=== PATIENT | male | born 1990 | race African-American/Black ===

== ENCOUNTER 2016-09-30 20:07 | Emergency (ER) | payer OTHER ==
[~2016-09-30] VITALS: Ht 165.1 cm; Wt 89.8 kg
[~2016-09-30 20:07] MED LIST: ADVAIR 100-501 EACH INH; ALBUTEROL SULF8.5 GM INH; ALBUTEROL2.5 MG/3 M HHN; AZITHROMYCIN250 MG ORAL; DIPHENHYDRAMINE25 M1 ORAL; FLOVENT2 PUFF1 INH; FLOVENT2 PUFF2 INH; IBUPROFEN600 MG PO; KEFLEX500 MG ORAL; KENALOG 0.1% CR15 GM APPLIC; KENALOG 0.1% CR15 GM TOPIC; LEVAQUIN500 MG ORAL; MEDROL DOSEPAK4 MG ORAL; NKM; PREDNISONE20 M1 PO; PREDNISONE20 MG ORAL; PREDNISONE50 MG ORAL; PROAIR HFA8.5 GM INH; PROMETHAZINE-C118 M1 ORAL; VENTOLIN HFA18 GM INH; ZYRTEC10 MG ORAL
[2016-09-30 20:49] VITALS: BP 120/74
[2016-09-30] MEDS ORDERED: KEFLEX500 MG ORAL (21:04)
[2016-09-30] MEDS ORDERED: IBUPROFEN600 MG ORAL (21:04)
--- NOTE | 2016-09-30 21:07 | Emergency Room Report ---
History of Present Illness General Chief Complaint: Earache Source: Patient Present Illness HPI Patient's 26-year-old male presented after increased left-sided facial rash as well as left sided earache. Patient had increased skin lesions which are nonpainful to left-sided cheek. He reported having increased nasal congestion. Patient stated that he had lesions his face but not painful. Patient had here. He denied any neck stiffness. He reported having some sharp pain to his left ear. He denied hearing loss. He denied any changes in his balance. Allergies: Coded Allergies: No Known Allergies (Unverified , 09/30/16) Patient History Reviewed Nursing Documentation: PMH: Agreed, PSxH: Agreed Nursing Documentation-PMH Past Medical History: No History, Except For Hx Asthma: Yes Review of Systems All Other Systems: negative except mentioned in HPI Physical Exam Vital Signs Date Time Temp Pulse Resp B/P Pulse Ox O2 Delivery O2 Flow Rate FiO2 09/30/16 20:45 98.1 70 16 126/78 96 Room Air Sp02 EP Interpretation: reviewed, normal General Appearance: normal inspection, well appearing, no apparent distress, alert, GCS 15 Head: atraumatic ENT: normal ENT inspection, hearing grossly normal, normal voice Neck: normal inspection, full range of motion, supple, no bony tend Respiratory: normal inspection, lungs clear, normal breath sounds, no respiratory distress, no retraction, no wheezing Cardiovascular #1: regular rate, rhythm, no edema Gastrointestinal: normal inspection, normal bowel sounds, non tender, soft, no guarding, no hernia Genitourinary: no CVA tenderness Musculoskeletal: normal inspection, back normal, normal range of motion Neurologic: normal inspection, alert, responsive, speech normal Psychiatric: normal inspection, judgement/insight normal, mood/affect normal Skin: no rash, other - grouped left cheek lesions centered on hair follicle without erythema Medical Decision Making Diagnostic Impression: Primary Impression: Folliculitis ER Course Patient presented for skin rash. Differential diagnosis included wasn't limited to folliculitis, contact dermatitis, acne, shingles among others. Patient's benign exam and does not appear to require any further imaging or laboratory testing at this time. The patient given ibuprofen for pain.The patient is advised to follow up with primary care doctor in 1-2 days. Patient is advised to return if any worsening condition or if any changes in status that are concerning. Last Vital Signs Date Time Temp Pulse Resp B/P Pulse Ox O2 Delivery O2 Flow Rate FiO2 09/30/16 20:45 98.1 70 16 126/78 96 Room Air Status: improved Disposition: HOME, SELF-CARE Condition: Stable Scripts Ibuprofen* (MOTRIN*) 600 Mg Tablet 600 MG ORAL Q8H Y for For Pain, #30 TAB 0 Refills Prov: Josue Bernal 09/30/16 Cephalexin* (KEFLEX*) 500 Mg Capsule 500 MG ORAL EVERY 6 HOURS, #28 CAP 0 Refills Prov: Josue Bernal 09/30/16 Patient Instructions: Folliculitis Josue Bernal Sep 30, 2016 21:07
[2016-09-30 21:35] VITALS: BP 120/74
== END 2016-09-30 21:35 | disposition home or self-care (01) ==
LOC: EMR 21:07
DX: L73.9 Follicular disorder, unspecified (principal); J45.909 Unspecified asthma, uncomplicated
CPT/HCPCS: 99284

== ENCOUNTER 2018-03-08 02:31 | Emergency (ER) | payer OTHER ==
[~2018-03-08] VITALS: Ht 165.1 cm; Wt 90.7 kg
[~2018-03-08 02:31] MED LIST changes: +IBUPROFEN600 MG ORAL
[2018-03-08 02:40] VITALS: BP 141/97
--- NOTE | 2018-03-08 02:42 | NUR ---
ED Nurse Note: pt came in deu to difficulty breathing started 1 hour ago, stated he has asthma attack and used 2 nebulizer and ventolin puff but didnt work out. pt stated he is running out of puff also. vss. will continue to monitor.
[2018-03-08] MEDS ORDERED: Ipratropium 0.02% Inh Soln 2.5ml UD HHN ONE (03:00)
[2018-03-08] MEDS ORDERED: Albuterol ud Inhalation HHN ONE ×3 (03:00→04:45)
--- NOTE | 2018-03-08 03:20 | NUR ---
ED Nurse Note: respiratory therapist on bedside nebulizing the pt. pt has bilaretal wheezing. nikolai continue to monitor.
[2018-03-08] MEDS ORDERED: DULERA 200 MCG/13 GM IH (03:27)
[2018-03-08] MEDS ORDERED: ALBUTEROL SULF8.5 GM INH (03:27)
[2018-03-08] MEDS ORDERED: PREDNISONE20 MG ORAL (03:27)
--- NOTE | 2018-03-08 03:27 | Emergency Room Report ---
History of Present Illness General Chief Complaint: Dyspnea/Respdistress Source: Patient Present Illness HPI Is a 28-year-old male with a history of asthma. He goes to 1 inhaler a month. He presents with chief complaint of shortness of breath and wheezing. Onset tonight. Woke up short of breath. He's been using his inhaler frequently for last week. No nausea no vomiting. No fever chills. Last steroid use was over a year ago. Denies any URI symptoms. No chest pain. better with albuterol. Worse with exertion. Allergies: Coded Allergies: No Known Allergies (Unverified , 09/30/16) Patient History Past Medical History: see triage record, old chart reviewed, asthma Past Surgical History: none Pertinent Family History: none Social History: Denies: smoking Immunizations: other Reviewed Nursing Documentation: PMH: Agreed; PSxH: Agreed Nursing Documentation-PM Past Medical History: No History, Except For Hx Asthma: Yes Review of Systems Eye: Denies: eye pain, blurred vision ENT: Denies: ear pain, nose congestion, throat swelling Respiratory: Reports: cough, shortness of breath, wheezing Cardiovascular: Denies: chest pain, palpitations Gastrointestinal: Denies: abdominal pain, diarrhea, nausea, vomiting Musculoskeletal: Denies: back pain, joint pain Skin: Denies: rash Neurological: Denies: headache, numbness Endocrine: Denies: increased thirst, increased urine Hematologic/Lymphatic: Denies: easy bruising All Other Systems: negative except mentioned in HPI Physical Exam Vital Signs Date Time Temp Pulse Resp B/P (MAP) Pulse Ox O2 Delivery O2 Flow Rate FiO2 03/08/18 02:35 97.9 99 20 141/97 95 Room Air 03/08/18 03:08 21 vital signs normal Sp02 EP Interpretation: reviewed, normal General Appearance: well appearing, no apparent distress, alert Head: normocephalic, atraumatic Eyes: bilateral eye PERRL, bilateral eye EOMI ENT: hearing grossly normal, normal pharynx Neck: full range of motion, supple, no meningismus Respiratory: chest non-tender, accessory muscle use, wheezing Cardiovascular #1: regular rate, rhythm, no murmur Gastrointestinal: normal bowel sounds, non tender, no mass, no organomegaly, no bruit, non-distended Musculoskeletal: back normal, gait/station normal, normal range of motion Psychiatric: mood/affect normal Skin: warm/dry Medical Decision Making Diagnostic Impression: Primary Impression: Asthma exacerbation Qualified Codes: J45.21 - Mild intermittent asthma with (acute) exacerbation ER Course Patient with asthma exacerbation. Is not well-controlled. We'll put him on steroid inhaler. We'll discharge home. No evidence of ACS, PE, dissection to name a few. Wheezing resolved with treatment. Last Vital Signs Date Time Temp Pulse Resp B/P (MAP) Pulse Ox O2 Delivery O2 Flow Rate FiO2 03/08/18 03:09 88 20 98 Room Air 21 03/08/18 02:40 97.9 141/97 Status: improved Disposition: HOME, SELF-CARE Condition: Stable Scripts Mometasone/Formoterol (DULERA 200 MCG/5 MCG INHALER) 13 Gm Hfa.aer.ad 13 GM IH BID, #1 UNIT Prov: Ricardo Sharp MD 03/08/18 Prednisone* (PREDNISONE*) 20 Mg Tablet 40 MG ORAL DAILY, #8 TAB Prov: Ricardo Sharp MD 03/08/18 Albuterol Sulfate* (ALBUTEROL SULFATE MDI*) 8.5 Gm Hfa.aer.ad 2 PUFF INH Q4H PRN for cough/wheezing, #1 EA 0 Refills Prov: Ricardo Sharp MD 03/08/18 Referrals: [facility],REFERR[facility] (PCP) Additional Instructions: Follow-up with your doctor in 7 days. Return if worse. Ricardo Sharp MD Mar 08, 2018 03:27
[2018-03-08 04:12] VITALS: BP 132/88
--- NOTE | 2018-03-08 04:17 | NUR ---
ED Nurse Note: pt noted to still have wheezing after 2 breathing tx, irwin told pt to wait 10-15 min until the meds kick in. pt sttaed he feeld a lot better now. will continue to monitor.
--- NOTE | 2018-03-08 04:54 | NUR ---
ED Nurse Note: pt noted to be wheezing still. ermd order albuterol hhn, rt on bedside. will continue to monitor.
--- NOTE | 2018-03-08 05:26 | NUR ---
ED Nurse Note: ermd on bedside,pt doing the peak flow meter and reveal 250 result x 3 attempts. ermd order another neb, rt on bedside doing the nebulization. will continue to monitor.
[2018-03-08] MEDS ORDERED: Albuterol/Ipratropium 3ml neb HHN ONE (05:30)
[2018-03-08 06:00] VITALS: BP 115/75
--- NOTE | 2018-03-08 06:03 | NUR ---
ED Nurse Note: ermd on bedside talking with pt with regards to dc plan. discharge instruction and prescription explained and pt able to verbalize understanding. pt stated he feels a lot better than when he came. id band removed, vss. pt left the ed with relative with all belongings.
== END 2018-03-08 06:00 | disposition home or self-care (01) ==
LOC: EMR 02:51
DX: J45.21 Mild intermittent asthma with (acute) exacerbation (principal)
CPT/HCPCS: 94640; 94664; 99284; J7512; J7620

== ENCOUNTER 2019-01-25 02:09 | Emergency (ER) | payer OTHER ==
[~2019-01-25] VITALS: Ht 165.1 cm; Wt 96.6 kg
[~2019-01-25 02:09] MED LIST changes: +DULERA 200 MCG/13 GM IH
[2019-01-25 02:19] VITALS: BP 135/91
--- NOTE | 2019-01-25 02:19 | NUR ---
ED Nurse Note: Patient walked in to ER c/o asthma flare up, SOB since yesterday morning. As per patient, he took his inhaler but doesnt alleviate the symptom. Has hx of asthma. Pt is an active smoker. O2 sat 95% RA. VSS. S/O at bedside.
--- NOTE | 2019-01-25 02:26 | Emergency Room Report ---
History of Present Illness General Chief Complaint: Asthma Source: Patient, Medical Record Present Illness HPI Disclaimer: Please note that this report is being documented using [employer] technology. This can lead to erroneous entry secondary to incorrect interpretation by the dictating instrument. HPI: 28-year-old male with a history of asthma presents for evaluation of shortness of breath. He symptoms began approximately 6 hours ago while the patient was at work. Notes wheezing that was not alleviated by using his albuterol inhaler. No recent exacerbations. He does not use any other medications to control his asthma. Otherwise in his usual state of health and denies any recent nasal congestion, sore throat, cough, abdominal pain, vomiting , chest pain, diarrhea. No known sick contacts. No alleviating or exacerbating factors. PMH: Asthma PSH: Denies Allergies: Denies Social Hx: Regular tobacco use Allergies: Coded Allergies: No Known Allergies (Unverified , 09/30/16) Nursing Documentation-PMH Past Medical History: No History, Except For Hx Asthma: Yes Review of Systems All Other Systems: negative except mentioned in HPI Physical Exam Vital Signs Date Time Temp Pulse Resp B/P (MAP) Pulse Ox O2 Delivery O2 Flow Rate FiO2 01/25/19 02:14 97.5 97 18 135/91 (106) 93 Room Air General: Awake and alert, no acute distress HEENT: NC/AT. EOMI. Cardiovascular: RRR. S1 and S2 normal. No murmur appreciated Resp: Normal work of breathing. No cough. Bilateral inspiratory and expiratory wheezes. No crackles Skin: Intact. No abrasions, laceration or rash over the exposed skin MSK: Normal tone and bulk. Moving all extremities. No obvious deformity. Neuro: Awake and alert. Mentating appropriately. Medical Decision Making Diagnostic Impression: Primary Impression: Asthma exacerbation ER Course 28-year-old male presents for evaluation of shortness of breath. Appears to be an acute asthma exacerbation as the patient has inspiratory next Tory wheezes bilaterally. Will give several breathing treatments and prednisone in the emergency department monitor for improvement. Do not believe he requires emergent imaging or labs at this time. He is well-appearing with stable vital signs on arrival. If improved he may be discharged and if not significantly improved he will require further work-up and reevaluation. Reevaluation Time: 04:21 Last Vital Signs Date Time Temp Pulse Resp B/P (MAP) Pulse Ox O2 Delivery O2 Flow Rate FiO2 01/25/19 02:14 97.5 97 18 135/91 (106) 93 Room Air Reevaluation Impression Patient is received several breathing treatments in the emergency department with improvement in his aeration. He has faint wheezes bilaterally at the bases though overall is improved from his initial presentation. He states he used to be taking Spiriva as well but is no longer has that prescription. We will refill his Spiriva and start him on oral prednisone for a few days. He has plenty of albuterol left at home. Patient will follow-up with his PMD. We discussed reasons to return to the emergency department. He understands and agrees with this treatment plan. Disposition: HOME, SELF-CARE Condition: Improved Scripts Tiotropium [place] (Spiriva) 18 Mcg Cap.w.dev 1 PUFF INH DAILY for 30 Days, #1 EA Prov: Dewayne Hart MD 01/25/19 Prednisone* (PREDNISONE*) 20 Mg Tablet 40 MG ORAL DAILY, #8 TAB Prov: Dewayne Hart MD 01/25/19 Dewayne Hart MD Jan 25, 2019 02:26
[2019-01-25] MEDS: Albuterol/Ipratropium 3ml neb HHN SCH ×3 (02:30→02:56)
--- NOTE | 2019-01-25 02:32 | NUR ---
ED Nurse Note: RT at bedside for breathing tx.
[2019-01-25] MEDS ORDERED: PREDNISONE20 MG ORAL (02:37)
[2019-01-25] MEDS: Albuterol ud Inhalation HHN SCH ×3 (03:17→03:49)
[2019-01-25] MEDS ORDERED: SPIRIVA INHALE1 PUF1 INH (04:20)
[2019-01-25 04:31] VITALS: BP 129/77
--- NOTE | 2019-01-25 04:31 | NUR ---
ED Nurse Note: Pt cleared by ERMDr for discharge. DC instructions was given and explained to pt and verbalized understanding of teachings. Precription is sent electronically to the pharmacy. All medical deviecs such as ID band removed. Pt is AAO x4, ambulatory and left with all personal belongings. Accompanied by s/o.
== END 2019-01-25 04:31 | disposition home or self-care (01) ==
LOC: EMR 02:35
DX: J45.901 Unspecified asthma with (acute) exacerbation (principal)
CPT/HCPCS: 94640; 94664; 99284; J7512; J7620

== ENCOUNTER 2019-02-15 20:16 | Emergency (ER) | payer OTHER ==
[~2019-02-15] VITALS: Ht 165.1 cm; Wt 96.6 kg
[~2019-02-15 20:16] MED LIST changes: +SPIRIVA INHALE1 PUF1 INH
[2019-02-15] MEDS ORDERED: PREDNISONE50 MG ORAL ×2 (21:26→22:55)
[2019-02-15] MEDS ORDERED: SPACE CHAMBER1 EACH MC (21:26)
[2019-02-15] MEDS ORDERED: ALBUTEROL SULF8.5 GM INH ×2 (21:26→22:55)
--- NOTE | 2019-02-15 21:27 | Emergency Room Report ---
History of Present Illness General Chief Complaint: Upper Respiratory Illness Source: Patient Present Illness HPI 28-year-old male past history of asthma, takes a rescue inhaler presents with shortness of breath that started at 12 PM today, alleviating factors albuterol, no aggravating factors, no cough no congestion, patient does endorse some chest tightness, severity is moderate, constant, patient has never been intubated, never been placed in ICU patient presents for evaluation. Allergies: Coded Allergies: No Known Allergies (Unverified , 09/30/16) Patient History Past Medical History: see triage record Reviewed Nursing Documentation: PMH: Agreed; PSxH: Agreed Nursing Documentation-PMH Hx Asthma: Yes Review of Systems All Other Systems: negative except mentioned in HPI Physical Exam Vital Signs Date Time Temp Pulse Resp B/P (MAP) Pulse Ox O2 Delivery O2 Flow Rate FiO2 02/15/19 20:19 98.1 116 24 140/72 (94) 93 Room Air Sp02 EP Interpretation: reviewed, normal General Appearance: well appearing, no apparent distress, alert Head: normocephalic, atraumatic Eyes: bilateral eye PERRL, bilateral eye EOMI ENT: uvula midline, moist mucus membranes Neck: supple, thyroid normal, supple/symm/no masses Respiratory: no respiratory distress, no retraction, no accessory muscle use, wheezing - Moderate wheezing bilaterally Cardiovascular #1: normal peripheral pulses, regular rate, rhythm, no edema, no gallop, no murmur Gastrointestinal: non tender, soft, no guarding, no rebound Musculoskeletal: normal inspection Neurologic: alert, oriented x3 Psychiatric: mood/affect normal Skin: no rash, warm/dry Medical Decision Making Diagnostic Impression: Primary Impression: Asthma exacerbation Qualified Codes: J45.41 - Moderate persistent asthma with (acute) exacerbation ER Course 28-year-old male presents with acute asthma exacerbation, differential diagnosis includes pneumonia, URI, asthma exacerbation Patient in no signs of respiratory distress, patient given prednisone p.o. in the ED, patient given duo nebs x3 Reevaluation at 9:15 PM, patient with significant improvement in breathing, wheezing is now mild Will provide patient with a prednisone burst, counseled patient on how to use his inhaler properly Disposition home with return precautions Last Vital Signs Date Time Temp Pulse Resp B/P (MAP) Pulse Ox O2 Delivery O2 Flow Rate FiO2 02/15/19 20:19 98.1 116 24 140/72 (94 93 Room Air Disposition: HOME, SELF-CARE Condition: Stable Scripts Prednisone* (PREDNISONE*) 50 Mg Tablet 50 MG ORAL DAILY, #4 TAB 0 Refills Prov: Sloan Mccloud MD 02/15/19 Inhaler, Assist Devices (Space Chamber Plus) 1 Each Spacer EACH MC, #1 Prov: Sloan Mccloud MD 02/15/19 Albuterol Sulfate* (ALBUTEROL SULFATE MDI*) 8.5 Gm Hfa.aer.ad 2 PUFF INH Q4H PRN for Shortness of Breath, #1 EA 0 Refills Prov: Sloan Mccloud MD 02/15/19 Referrals: [facility] Patient Instructions: Asthma Attack Prevention, Asthma, Adult, [id number] Additional Instructions: The patient was provided with discharge instructions, notified to follow-up with a primary care doctor and or specialist in the next 24-48 hours, and to return to the ED if they have worsening of their symptoms. Please note that this report is being documented using [employer] technology. This can lead to erroneous entry secondary to incorrect interpretation by the dictating instrument. Sloan Mccloud MD Feb 15, 2019 21:27
[2019-02-15] MEDS: Albuterol ud Inhalation HHN SCH ×5 (21:52→23:26)
[2019-02-15] MEDS: Ipratropium 0.02% Inh Soln 2.5ml UD HHN SCH ×2 (21:53→23:26)
[2019-02-15 23:30] VITALS: BP 149/66
[2019-02-15 23:50] VITALS: BP 140/72
== END 2019-02-15 23:50 | disposition home or self-care (01) ==
LOC: EMR 21:00
DX: J45.41 Moderate persistent asthma with (acute) exacerbation (principal)
CPT/HCPCS: 99284; J7512

== ENCOUNTER 2019-11-16 16:42 | Emergency (ER) | payer OTHER ==
[~2019-11-16] VITALS: Ht 165.1 cm; Wt 86.2 kg
[~2019-11-16 16:42] MED LIST changes: +SPACE CHAMBER1 EACH MC
[2019-11-16 16:50] VITALS: BP 129/82
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
[2019-11-16] MEDS ORDERED: PROAIR HFA8.5 GM INH ×2 (17:06→17:11)
[2019-11-16 17:14] VITALS: BP 116/82
== END 2019-11-16 17:14 | disposition home or self-care (01) ==
LOC: EMR 17:05
DX: Z48.02 Encounter for removal of sutures (principal)
CPT/HCPCS: 99282

== ENCOUNTER 2020-01-09 01:23 | Emergency (ER) | payer OTHER ==
[~2020-01-09] VITALS: Ht 165.1 cm; Wt 90.7 kg
--- NOTE | 2020-01-09 01:30 | NUR ---
ED Nurse Note: Patient walked into the ED from home with c/o onset yesterday afternoon. Patient has hx of asthma and is med compliant. Wheezes present and patient used his inhaler before coming into the ED but with no relief. Triggers unkown. PAtient denies fever and chills, N&V, CP. Patient placed on monitor bed.
--- NOTE | 2020-01-09 01:31 | NUR ---
ED Nurse Note: ERMd at bedside
--- NOTE | 2020-01-09 01:38 | Emergency Room Report ---
History of Present Illness General Chief Complaint: Asthma Source: Patient, Medical Record Present Illness HPI This is a 29-year-old male with history of asthma. Usually well controlled. He said this last month has been acting up on him more. He presents with chief complaint of wheezing shortness of breath. Onset this afternoon. He said his inhaler is not helping. No nausea no vomiting. Coughing is nonproductive nature. Wheezing a lot. Worse with exertion. Better with rest. Similar symptom in the past. Never been intubated. Last steroid use with more than 6 months. Allergies: Coded Allergies: No Known Allergies (Unverified , 09/30/16) COVID-19 Screening Contact w/high risk pt: No Experienced COVID-19 symptoms?: No COVID-19 Testing performed [employer]: No Patient History Past Medical History: see triage record, old chart reviewed, asthma Past Surgical History: none Pertinent Family History: none Social History: Denies: smoking Immunizations: other Reviewed Nursing Documentation: PMH: Agreed; PSxH: Agreed Nursing Documentation-PMH Hx Asthma: Yes Review of Systems Eye: Denies: eye pain, blurred vision ENT: Denies: ear pain, nose congestion, throat swelling Respiratory: Reports: cough, shortness of breath, wheezing Cardiovascular: Denies: chest pain, palpitations Gastrointestinal: Denies: abdominal pain, diarrhea, nausea, vomiting Musculoskeletal: Denies: back pain, joint pain Skin: Denies: rash Neurological: Denies: headache, numbness Endocrine: Denies: increased thirst, increased urine Hematologic/Lymphatic: Denies: easy bruising All Other Systems: negative except mentioned in HPI Physical Exam Vital Signs Date Time Temp Pulse Resp B/P (MAP) Pulse Ox O2 Delivery O2 Flow Rate FiO2 01/09/20 01:28 98.6 120 16 125/78 (94) 90 Room Air Vitals with hypoxia Sp02 EP Interpretation: reviewed, abnormal General Appearance: well appearing, alert, moderate distress Head: normocephalic, atraumatic Eyes: bilateral eye PERRL, bilateral eye EOMI ENT: hearing grossly normal, normal pharynx Neck: full range of motion, supple, no meningismus Respiratory: chest non-tender, respiratory distress, decreased breath sounds, accessory muscle use, wheezing Cardiovascular #1: regular rate, rhythm, no murmur Gastrointestinal: normal bowel sounds, non tender, no mass, no organomegaly, no bruit, non-distended Musculoskeletal: back normal, normal range of motion, gait/station normal Psychiatric: mood/affect normal Procedures Critical Care Time Critical Care Time Critical care is mandated in this patient who presented with status asthmaticus. Patient require my urgent intervention to attenuate the risks of respiratory collapse which may lead to cardiovascular collapse and . Critical care time is 35 minutes excluding any reportable procedure. Critical care time included evaluation, multiple reevaluation, looking at old charts, interpreting laboratory and diagnostic data, discussing case with patient and family and consultants, and charting. Medical Decision Making Diagnostic Impression: Primary Impression: Status asthmaticus Qualified Codes: J45.52 - Severe persistent asthma with status asthmaticus Additional Impression: Respiratory failure with hypoxia Qualified Codes: J96.01 - Acute respiratory failure with hypoxia ER Course Presents with status asthmaticus. He improved greatly with several breathing treatments and steroids. He is still wheezing however. Because of the prolonged wheezing, will admit for further treatment. He is stable for transfer to [facility]. Discussed the case with Dr. Ricardo. Case #[id number]. He accepted patient for transfer to [facility]. Rhythm Strip Diag. Results EP Interpretation: yes Rate: 104 Rhythm: NSR, no PVC's, no ectopy Chest X-Ray Diagnostic Results Chest X-Ray Diagnostic Results : Chest X-Ray Ordered: Yes # of Views/Limited/Complete: 1 View Indication: Shortness of Breath EP Interpretation: Yes Interpretation: no consolidation, no effusion, no pneumothorax, no acute cardiopulmonary disease Impression: No acute disease Electronically Signed by: Ricardo Sharp MD Last Vital Signs Date Time Temp Pulse Resp B/P (MAP) Pulse Ox O2 Delivery O2 Flow Rate FiO2 01/09/20 01:28 98.6 120 16 125/78 (94) 90 Room Air Status: improved Disposition: SHORT-TERM HOSP Condition: Stable Ricardo Sharp MD Jan 09, 2020 01:38
[2020-01-09] MEDS ORDERED: Albuterol ud Inhalation HHN ONE ×3 (01:45→04:00)
[2020-01-09] MEDS ORDERED: Ipratropium 0.02% Inh Soln 2.5ml UD HHN ONE (01:45)
[2020-01-09 01:51] VITALS: BP 125/78
--- NOTE | 2020-01-09 01:51 | NUR ---
ED Nurse Note: RT at bedside for breathing tx
--- NOTE | 2020-01-09 02:44 | NUR ---
ED Nurse Note: IV line started at right AC g20 Labs and rapid covid test sent
--- NOTE | 2020-01-09 02:45 | NUR ---
ED Nurse Note: CXR done at bedside
[2020-01-09 02:55] LABS: BASOPHILS % (AUTO) 1.6 % (0.0-2.0); EOSINOPHILS % (AUTO) 5.1 % (0.0-3.0); HEMOGLOBIN 16.9 G/DL (14.2-18.0); LYMPHOCYTES % (AUTO) 22.2 % (20.0-45.0); MEAN CORPUSCULAR VOLUME 95 FL (80-99); NEUTROPHILS % (AUTO) 62.1 % (45.0-75.0); PLATELET COUNT 303 K/UL (150-450); RED BLOOD COUNT 5.69 M/UL (4.70-6.10); RED CELL DISTRIBUTION WIDTH 16.3 % (11.6-14.8); WHITE BLOOD COUNT 9.1 K/UL (4.8-10.8)
[2020-01-09 03:10] LABS: BLOOD UREA NITROGEN 13 mg/dL (7-18); CARBON DIOXIDE 28 MMOL/L (21-32); CHLORIDE 104 MMOL/L (98-107); CREATININE 1.5 MG/DL (0.55-1.30); POTASSIUM 4.2 MMOL/L (3.5-5.1); SODIUM 141 MMOL/L (136-145)
--- NOTE | 2020-01-09 03:43 | Diagnostic Imaging Report ---
EXAM: XR Chest, 1 View CLINICAL HISTORY: SOB TECHNIQUE: Frontal view of the chest. COMPARISON: 07/10/13 FINDINGS: No acute radiographic findings.
--- NOTE | 2020-01-09 06:29 | NUR ---
ED Nurse Note: Report given to AVERY MERCADO at [facility]
--- NOTE | 2020-01-09 06:32 | NUR ---
ED Nurse Note: Updated [facility]
--- NOTE | 2020-01-09 06:59 | NUR ---
HAND-OFF: Report given to LUIS MERCADO.
[2020-01-09 07:23] VITALS: BP 125/78
--- NOTE | 2020-01-09 07:25 | NUR ---
ED Nurse Note: Patient was transfered to [facility] due to astma exaserbation. Patient was transfered via private [facility] ambulance unit # [id number], with all belongings. Patient AAO x 4, all VSS at this time.
== END 2020-01-09 07:30 | disposition short-term general hospital (02) ==
LOC: EMR 01:52
DX: J45.52 Severe persistent asthma with status asthmaticus (principal); J96.91 Respiratory failure, unspecified with hypoxia
CPT/HCPCS: 36415; 71045; 80048; 85025; 94640; 96365; 96366; 99291; J7030; J7512; U0002

== ENCOUNTER 2020-04-14 08:39 | Emergency (ER) | payer OTHER ==
[~2020-04-14] VITALS: Ht 165.1 cm; Wt 81.6 kg
[2020-04-14 08:55] VITALS: BP 119/82
[2020-04-14 09:00] VITALS: BP 123/69
[2020-04-14] MEDS ORDERED: ASMANEX HFA13 G1 IH (09:01)
[2020-04-14] MEDS ORDERED: PREDNISONE20 MG ORAL (09:01)
[2020-04-14] MEDS ORDERED: VENTOLIN HFA18 GM INH (09:01)
--- NOTE | 2020-04-14 10:59 | Emergency Room Report ---
History of Present Illness General Chief Complaint: Medication Refill Source: Patient Present Illness HPI Patient is a 30-year-old male presents for patient is a 30-year-old male presents for medication refill. Prior history of asthma. Had run out of his inhaler as well as steroid inhaler. Reports having some difficulty breathing this morning which improved after taking his nebulizer. Prior history of as thma. Denies any fever. Denies any leg pain or swelling. No chest discomfort. Allergies: Coded Allergies: No Known Allergies (Unverified , 09/30/16) COVID-19 Screening Contact w/high risk pt: No Experienced COVID-19 symptoms?: No COVID-19 Testing performed [employer]ANT: Yes COVID-19 Screening: Negative COVID-19 COVID-19 Testing Source: 2 weeks ago Patient History Past Medical History: see triage record Reviewed Nursing Documentation: PMH: Agreed; PSxH: Agreed Nursing Documentation-PM Past Medical History: No History, Except For Hx Asthma: Yes Review of Systems All Other Systems: negative except mentioned in HPI Physical Exam Vital Signs Date Time Temp Pulse Resp B/P (MAP) Pulse Ox O2 Delivery O2 Flow Rate FiO2 04/14/20 08:47 97.9 68 18 119/82 (94) 94 Room Air Sp02 EP Interpretation: reviewed, normal General Appearance: normal inspection, well appearing, no apparent distress, alert, GCS 15 Head: atraumatic ENT: normal ENT inspection, hearing grossly normal, normal voice Neck: normal inspection, full range of motion, supple, no bony tend Respiratory: normal inspection, lungs clear, normal breath sounds, no respiratory distress, no retraction, no wheezing Cardiovascular #1: regular rate, rhythm, no edema Gastrointestinal: normal inspection, normal bowel sounds, non tender, soft, no guarding, no hernia Genitourinary: no CVA tenderness Musculoskeletal: normal inspection, back normal, normal range of motion Neurologic: alert, responsive, speech normal, normal inspection Psychiatric: normal inspection, judgement/insight normal, mood/affect normal Medical Decision Making Diagnostic Impression: Primary Impression: Asthma ER Course Patient presents for refill of asthma medications. Differential diagnosis include was not limited to asthma exacerbation, coronavirus infection, environmental allergies among others. Patient does not appear to any acute distress. Patient appears to have minimal symptoms at this time. He was given prescriptions for steroid inhaler as well as Ventolin. He was also given prescription for prednisone if symptoms worsen. He is advised to return if worse. This medical record is generated with [employer] measurer machine software. There may be some measurer machine discrepancies related to use of this software Last Vital Signs Date Time Temp Pulse Resp B/P (MAP) Pulse Ox O2 Delivery O2 Flow Rate FiO2 04/14/20 09:00 98.0 69 18 123/69 99 Room Air Status: improved Disposition: HOME, SELF-CARE Condition: Stable Scripts Mometasone Furoate (Asmanex Hfa) 13 Gm Hfa.aer.ad 13 GM IH DAILY, #1 INH Prov: Josue Bernal MD 04/14/20 Albuterol Sulfate (VENTOLIN HFA) 18 Gm Hfa.aer.ad 2 PUFFS INH EVERY 6 HOURS, #18 GM 0 Refills Prov: Josue Bernal MD 04/14/20 Prednisone* (PREDNISONE*) 20 Mg Tablet 40 MG ORAL DAILY, #10 TAB Prov: Josue Bernal MD 04/14/20 Referrals: [facility] (PCP) Patient Instructions: Asthma, Adult Additional Instructions: Follow up with your doctor for recheck. Return if worse. Josue Bernal MD Apr 14, 2020 10:59
== END 2020-04-14 09:00 | disposition home or self-care (01) ==
LOC: EMR 08:59
DX: J45.909 Unspecified asthma, uncomplicated (principal); Z79.899 Other long term (current) drug therapy
CPT/HCPCS: 99282

== ENCOUNTER 2020-05-24 15:39 | Emergency (ER) | payer OTHER ==
[~2020-05-24] VITALS: Ht 167.6 cm; Wt 79.4 kg
[~2020-05-24 15:39] MED LIST changes: +ASMANEX HFA13 G1 IH
[2020-05-24] MEDS ORDERED: VENTOLIN HFA18 GM INH (15:58)
[2020-05-24] MEDS ORDERED: PREDNISONE20 MG ORAL ×2 (15:58→15:59)
[2020-05-24] MEDS ORDERED: ALBUTEROL0.63 MG/3 HHN (15:58)
[2020-05-24] MEDS ORDERED: DULERA 200 MCG/13 GM IH (15:58)
--- NOTE | 2020-05-24 16:00 | Emergency Room Report ---
History of Present Illness General Chief Complaint: Medication Refill Present Illness HPI 30-year-old male with history of asthma Dulera, albuterol inhaler and nebulizer here requesting medication refill. Patient has been an appointment with primary care provider in September. Reports that wheezing is worse last night and use the few packets that he had left albuterol nebulizer treatment is feeling better now. No wheezing noted. Appears to be stable with stable vital signs. No retractions noted. Denies any chest pain, shortness of breath, cough or conge stion. Is requesting a 5-day course of prednisone usually helps him when he gets his asthma attacks. Denies fever or chills. Allergies: Coded Allergies: No Known Allergies (Unverified , 05/24/20) COVID-19 Screening Contact w/high risk pt: No Experienced COVID-19 symptoms?: No COVID-19 Testing performed [employer] TECHNICIAN: No Patient History Past Medical History: see triage record Past Surgical History: none Pertinent Family History: none Immunizations: UTD Reviewed Nursing Documentation: PMH: Agreed; PSxH: Agreed Nursing Documentation-PMH Hx Asthma: Yes Review of Systems All Other Systems: negative except mentioned in HPI Physical Exam Vital Signs Date Time Temp Pulse Resp B/P (MAP) Pulse Ox O2 Delivery O2 Flow Rate FiO2 05/24/20 15:49 98.1 78 18 130/80 (97) 96 Sp02 EP Interpretation: reviewed, normal General Appearance: no apparent distress, alert, GCS 15, non-toxic Head: normocephalic, atraumatic Eyes: bilateral eye normal inspection, bilateral eye PERRL ENT: normal pharynx, no angioedema Neck: supple, no meningismus Respiratory: no rhonchi, no respiratory distress, no retraction, no accessory muscle use, no wheezing Cardiovascular #1: regular rate, rhythm, no edema, no gallop, no murmur Cardiovascular #2: 2+ carotid (R), 2+ carotid (L), 2+ radial (R), 2+ radial (L), 2+ dorsalis pedis (R), 2+ dorsalis pedis (L) Gastrointestinal: soft, no bruit Rectal: deferred Genitourinary: no CVA tenderness Musculoskeletal: back normal, no calf tenderness Neurologic: alert, motor strength/tone normal, oriented x3, sensory intact, responsive, speech normal Psychiatric: judgement/insight normal, memory normal, mood/affect normal, no suicidal/homicidal ideation Skin: no rash Lymphatic: no adenopathy Medical Decision Making PA Attestation All diagnoses and treatment plans were reviewed and discussed with my supervisin g physician Dr. Hart Diagnostic Impression: Primary Impression: Encounter for medication refill Additional Impression: Asthma ER Course 30-year-old male with history of asthma Dulera, albuterol inhaler and nebulizer here requesting medication refill. Patient has been an appointment with primary care provider in September. Reports that wheezing is worse last night and use the few packets that he had left albuterol nebulizer treatment is feeling better now. No wheezing noted. Appears to be stable with stable vital signs. No retractions noted. Denies any chest pain, shortness of breath, cough or congestion. Is requesting a 5-day course of prednisone usually helps him when he gets his asthma attacks. Denies fever or chills. Ddx considered but are not limited to: bronchitis, PNA, URI viral, bacterial bronchitis Vital signs: are WNL, pt. is afebrile H&PE are most consistent with: Medication refill, asthma ORDERS: Defer chest x-ray, refill of albuterol inhaler, nebulizer, Dulera, oral prednisone ED INTERVENTIONS: None required at this time. DISCHARGE: At this time pt. is stable for d/c to home. Will provide printed patient care instructions, and any necessary prescriptions. Care plan and follow up instructions have been discussed with the patient prior to discharge. Advised patient to follow primary care provider, 1 month supply of medication refill given to patient. If worsening symptoms return to the emergency room Last Vital Signs Date Time Temp Pulse Resp B/P (MAP) Pulse Ox O2 Delivery O2 Flow Rate FiO2 05/24/20 15:49 98.1 78 18 130/80 (97) 96 Disposition: HOME, SELF-CARE Condition: Stable Scripts Prednisone* (PREDNISONE*) 20 Mg Tablet 40 MG ORAL DAILY, #10 TAB Prov: Bernardo Brown 05/24/20 Albuterol Sulfate (ALBUTEROL SULFATE) 0.63 Mg/3 Ml Vial.neb 0.63 MG HHN Q6HR, #30 VIAL Prov: Bernardo Brown 05/24/20 Albuterol Sulfate (VENTOLIN HFA) 18 Gm Hfa.aer.ad 2 PUFFS INH EVERY 6 HOURS, #18 GM 0 Refills Prov: Bernardo Brown 05/24/20 Mometasone/Formoterol (DULERA 200 MCG/5 MCG INHALER) 13 Gm Hfa.aer.ad 13 GM IH BID, #1 UNIT Prov: Bernardo Brown 05/24/20 Referrals: [facility] (PCP) Patient Instructions: Medicine Refill at the Emergency Department Bernardo Brown May 24, 2020 16:00
[2020-05-24 16:05] VITALS: BP 130/80
== END 2020-05-24 16:07 | disposition home or self-care (01) ==
LOC: EMR 15:50
DX: Z76.0 Encounter for issue of repeat prescription (principal); J45.909 Unspecified asthma, uncomplicated; Z79.899 Other long term (current) drug therapy
CPT/HCPCS: 99282